=== PATIENT | male | born 1985 | race African-American/Black ===

== ENCOUNTER 2019-01-22 04:07 | Emergency (ER) | payer OTHER ==
[~2019-01-22] VITALS: Ht 180.3 cm; Wt 93.0 kg
--- NOTE | 2019-01-22 04:20 | NUR ---
Patient arrived at the ER with chief complaint of diarrhea. Patient reported diarrhea/watery stools hourly for the past 24 hours. Denies any N/V. Patient reported abdominal pain when needing to go to the toilet. Denies any abdominal pain at this time. Patient reported taking Imodium x3 tablet, last taken at 6PM yesterday(01/21/19). Patient AAOx4. Speak in full sentences. In no acute respitory distress. No cardiovascular concern. No concern. Bed on lock position. Fall precaution per protocol.
[2019-01-22] MEDS ORDERED: DIPHENOXYLATE HCL/ATROP SULF TABLET PO ONE (04:45)
[2019-01-22] MEDS ORDERED: IV NORMAL SALINE 1000 ML BAG IV ONE ×3 (04:45→06:15)
[2019-01-22] MEDS ORDERED: DIPHENOXYLATE HCL/ATROP SULF TABLET ONE (04:48)
[2019-01-22 05:04] LABS: BASOPHILS % (AUTO) 0.3 % (0.0-2.0); EOSINOPHILS % (AUTO) 0.2 % (0.0-7.0); HEMATOCRIT 47.2 % (36.7-47.1); HEMOGLOBIN 16.1 g/dL (12.5-16.3); LYMPHOCYTES # (AUTO) 0.5 K/uL (20.0-40.0); LYMPHOCYTES % (AUTO) 12.3 % (20.5-51.5); MEAN CORPUSCULAR HEMOGLOBIN 30.1 uug (23.8-33.4); MEAN CORPUSCULAR HGB CONC 34 g/dL (32.5-36.3); MONOCYTES # (AUTO) 0.7 K/uL (2.0-10.0); MONOCYTES % (AUTO) 17.3 % (0.0-11.0); NEUTROPHILS % (AUTO) 69.9 % (38.5-71.5); PLATELET COUNT (AUTO) 150 K/uL (152-348); RED BLOOD CELL COUNT(AUTO) 5.36 MIL/uL (4.06-5.63); WHITE BLOOD COUNT (AUTO) 4.3 K/uL (3.6-10.2)
[2019-01-22 05:12] LABS: CREATININE 1.5 mg/dL (0.6-1.3); POTASSIUM 3.9 mmol/L (3.5-5.1)
[2019-01-22 05:17] LABS: BILIRUBIN,DIRECT 0.2 mg/dL (0.0-0.2); BILIRUBIN,TOTAL 0.6 mg/dL (0.2-1.0); TOTAL PROTEIN, SERUM 8.4 g/dL (6.4-8.2)
--- NOTE | 2019-01-22 05:25 | NUR ---
DR. UGARTE AT BEDSIDE FOR MSE.
[2019-01-22] MEDS ORDERED: LEVOFLOXACIN 500 MG TABLET PO ONE (05:45)
[2019-01-22] MEDS ORDERED: LEVOFLOXACIN 500 MG TABLET ONE (05:54)
[2019-01-22 06:00] LABS: BAND % (MANUAL) 23 % (0-10); BASOPHILS % (MANUAL) 1 % (0-2); LYMPHOCYTES % (MANUAL) 17 % (20-40); METAMYELOCYTES % 2 % (0-1); MONOCYTES % (MANUAL) 18 % (2-10); NEUTROPHILS % (MANUAL) 38 % (42-75)
--- NOTE | 2019-01-22 06:47 | NUR ---
Patient discharged to home in stable conditon. Written and verbal after care instructions given. Patient verbalizes understanding of instructions. PATIENT LEFT WITH STABLE GAIT.
[2019-01-22 06:48] VITALS: BP 128/74
== END 2019-01-22 06:48 | disposition home or self-care (01) ==
LOC: ER 04:10
DX: A04.9 Bacterial intestinal infection, unspecified (principal); E86.0 Dehydration
CPT/HCPCS: 36415; 85025; 86625; 87046; 87177; 89055; A4663; J7030

== ENCOUNTER 2019-08-09 16:43 | Emergency (ER) | payer OTHER ==
[~2019-08-09] VITALS: Ht 180.3 cm; Wt 99.8 kg
--- NOTE | 2019-08-09 17:24 | NUR ---
PT IS IN ROOM #2B. DR UGARTE EVALUATED THE PT.
--- NOTE | 2019-08-09 17:43 | NUR ---
PT WAS D/C'd TO HOME AFTER DR UGARTE EVALUATION. D/C INSTRUCTIONS GIVEN TO THE PT BY DR UGARTE.
[2019-08-09 17:45] VITALS: BP 131/79
== END 2019-08-09 17:46 | disposition home or self-care (01) ==
LOC: ER 16:45
DX: G62.9 Polyneuropathy, unspecified (principal)
CPT/HCPCS: A4663